=== PATIENT | male | born 1995 | race Caucasian/White ===

== ENCOUNTER 2018-04-04 12:46 | Emergency (ER) | payer OTHER ==
--- NOTE | 2018-04-04 13:30 | RAD ---
INDICATION: Aspiration of seed. COMPARISON: Comparison is made with a prior study from March 19, 2012. TECHNIQUE: Dual-energy PA and lateral views of the chest were obtained. FINDINGS: The heart is within normal limits in size. Mediastinal and hilar contours appear within normal limits. The lungs are clear. No pleural effusion is present. IMPRESSION: NO EVIDENCE FOR ACTIVE CARDIOPULMONARY DISEASE.
--- NOTE | 2018-04-04 13:55 | ED ---
HPI Cardiac - HPI Summary HPI Summary: Pt presents w/ 1 week h/o Rt anterior mid chest pain, parasternal, since accidentally aspirating a hemp plant seed at work. This happened on Friday and he had acute pain w/ the inspiration - has had a cough and discomfort here since , mostly w/ deep breath. Has a sensation that he's SOB but denies wheezing, difficulty swallowing, trouble sleeping/eating/drinking. Reports the seed is part of a plant that is processed for CBD oil only - no THC - denies effects of CBD such as dizziness, lightheadedness, fatigue, etc. No h/o pulm issues. Smoke cigarettes and marijuana recreationally. Admits to ETOH use occasionally but has not drank this week. - History of Current Complaint Chief Complaint: EDShortnessOfBreath Stated Complaint: CHEST DISCOMFORT Time Seen by Provider: 04/04/18 13:12 Hx Obtained From: Patient Pain Intensity: 5 - Allergy/Home Medications Allergies/Adverse Reactions: Allergies Allergy/AdvReac Type Severity Reaction Status Date / Time No Known Allergies Allergy Verified 04/04/18 12:52 PMH/Surg Hx/FS Hx/Imm Hx Previously Healthy: Yes Endocrine/Hematology History: Denies: Hx Anticoagulant Therapy, Hx Diabetes, Hx Thyroid Disease Cardiovascular History: Denies: Hx Hypertension, Hx Pacemaker/ICD Respiratory History: Denies: Hx Asthma, Hx Chronic Obstructive Pulmonary Disease (COPD), Hx Seasonal Allergies History: Denies: Hx Renal Disease Sensory History: Reports: Hx Contacts or Glasses - GLASSES Denies: Hx Hearing Aid Opthamlomology History: Reports: Hx Contacts or Glasses - GLASSES Neurological History: Denies: Hx Dementia, Hx Seizures Psychiatric History: Reports: Hx Eating Disorder - history of bulimia states he hasn't vomited in over a year, Hx Substance Abuse - MARIJUANA USE - Surgical History Surgery Procedure, Year, and Place: WISDOM TEETH Hx Anesthesia Reactions: No - Immunization History Date of Tetanus Vaccine: utd Infectious Disease History: No Infectious Disease History: Denies: Hx Hepatitis, Hx Human Immunodeficiency Virus (HIV), Traveled Outside the [place] in Last 30 Days - Social History 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 Alcohol Use: Occasionally Substance Use Type: Reports: Marijuana Hx Tobacco Use: Yes Smoking Status (MU): Current Every Day Smoker Amount Used/How Often: 1/2 PPD Length of Time of Smoking/Using Tobacco: 1.5YRS Review of Systems Constitutional: Negative Negative: Fever, Chills, Fatigue Positive: Chest Pain Positive: Cough Gastrointestinal: Negative Positive: no symptoms reported Musculoskeletal: Negative Skin: Negative Neurological: Negative Psychological: Normal All Other Systems Reviewed And Are Negative: Yes Physical Exam Triage Information Reviewed: Yes Vital Signs On Initial Exam: Initial Vitals Temp Pulse Resp BP Pulse Ox 98.7 F 87 18 149/91 100 04/04/18 12:48 04/04/18 12:48 04/04/18 12:48 04/04/18 12:48 04/04/18 12:48 Vital Signs Reviewed: Yes Appearance: Positive: Well-Appearing, No Pain Distress, Well-Nourished Skin: Positive: Warm, Skin Color Reflects Adequate Perfusion, Dry Head/Face: Positive: Normal Head/Face Inspection Eyes: Positive: Normal, EOMI ENT: Positive: Normal ENT inspection, Hearing grossly normal, Pharynx normal - mucosa moist Neck: Positive: Supple, Nontender Respiratory/Lung Sounds: Positive: Clear to Auscultation, Breath Sounds Present , Other - cough is rare and brief. Negative: Decreased Breath Sounds, Rales, Rhonchi, Subcutaneous Emphysema, Stridor, Tracheal Deviation, Wheezes, Unable to speak in full sentences, Fatigue Cardiovascular: Positive: Normal, RRR, S1, S2. Negative: Leg Edema Left, Leg Edema Right Abdomen Description: Positive: Soft Bowel Sounds: Positive: Present Musculoskeletal: Positive: Normal, Strength/ROM Intact Neurological: Positive: Normal, Sensory/Motor Intact, Alert, Oriented to Person Place, Time, CN Intact II-III Psychiatric: Positive: Normal - concerned but calm Diagnostics - Vital Signs Vital Signs Temp Pulse Resp BP Pulse Ox 04/04/18 13:22 80 95 04/04/18 12:48 98.7 F 87 18 149/91 100 - Laboratory Lab Statement: Any lab studies that have been ordered have been reviewed, and results considered in the medical decision making process. Disposition - Course Course Of Treatment: CXR: no FB observed - no 2ndry acute pulm findings such as PNA. W/ acute onset of sx timed w/ aspiration and vitals WNL, no further testing today. However if sx persist or worsen, pt may be a candidate for labs/ CT scan. Discussed w/ Dr. Walsh who agrees there is not urgent concern based on imaging and presentation. Will have pt reduce/elimate smoking altogether to allow his lungs to heal. If danger s/sx present, will return to ED. - Diagnoses Provider Diagnoses: Cough Discharge - Sign-Out/Discharge Documenting (check all that apply): Patient Departure - Discharge Plan Condition: Stable Disposition: HOME Patient Education Materials: Acute Cough (ED) Referrals: Lang Pavon MD [Primary Care Provider] - Additional Instructions: Based on your recall of events, you may have aspirated a seed. This was not seen on XR today and your vital signs are normal. To reduce pain and cough, you may reduce/eliminate smoking altogether until your lungs heal. You may also try humidification, rest, fluids, cough drops, mucinex with plenty of fluid. A seed is organic material and the body will break it down over time. *If you develop shortness of breath, difficulty breathing, fever, chills, nausea , back pain or bloody cough, return to the ED. Otherwise, you may follow-up with your PCP. - Billing Disposition and Condition Condition: STABLE Disposition: Home
[2018-04-04 14:28] VITALS: BP 0/0
== END 2018-04-04 14:27 | disposition home or self-care (01) ==
LOC: ED 12:46
DX: R05 Cough (principal); F17.210 Nicotine dependence, cigarettes, uncomplicated
CPT/HCPCS: 71046; 99282

== ENCOUNTER 2018-04-18 16:37 | Emergency (ER) | payer OTHER ==
--- NOTE | 2018-04-18 17:52 | ED ---
Psychiatric Complaint - HPI Summary HPI Summary: This patient is a 22 year old M presenting to [facility] with a chief complaint of stress since getting into legal trouble. Pt states he is going through family and legal crises and needs someone to talk to. He denies SI, HI, and rx. He endorses decreased appetite with emesis (food wont stay down), and insomnia. He states that his legal counselling could not get him psychiatric help until 2 weeks from now. - History Of Current Complaint Chief Complaint: EDMentalHealth Time Seen by Provider: 04/18/18 17:32 Hx Obtained From: Patient Onset/Duration: Gradual Onset, Still Present Timing: Constant Severity Initially: Mild Severity Currently: Mild Character: Depressed Aggravating Factor(s): Recent Stress - family crisis, legal trouble Alleviating Factor(s): Nothing Associated Signs And Symptoms: Positive: Sleep Disturbance, Appetite Change Has Suicidal: Denies: Thoughts Has Homicidal: Denies: Thoughts Recent Stressor(s): "family crisis" and legal trouble - Allergies/Home Medications Allergies/Adverse Reactions: Allergies Allergy/AdvReac Type Severity Reaction Status Date / Time No Known Allergies Allergy Verified 04/04/18 12:52 PMH/Surg Hx/FS Hx/Imm Hx Endocrine/Hematology History: Denies: Hx Anticoagulant Therapy, Hx Diabetes, Hx Thyroid Disease Cardiovascular History: Denies: Hx Hypertension, Hx Pacemaker/ICD Respiratory History: Denies: Hx Asthma, Hx Chronic Obstructive Pulmonary Disease (COPD), Hx Seasonal Allergies History: Denies: Hx Renal Disease Sensory History: Reports: Hx Contacts or Glasses - GLASSES Denies: Hx Hearing Aid Opthamlomology History: Reports: Hx Contacts or Glasses - GLASSES Neurological History: Denies: Hx Dementia, Hx Seizures Psychiatric History: Reports: Hx Eating Disorder - history of bulimia states he hasn't vomited in over a year, Hx Substance Abuse - MARIJUANA USE - Surgical History Surgery Procedure, Year, and Place: WISDOM TEETH Hx Anesthesia Reactions: No - Immunization History Date of Tetanus Vaccine: utd Infectious Disease History: No Infectious Disease History: Denies: Hx Hepatitis, Hx Human Immunodeficiency Virus (HIV), Traveled Outside the [place] in Last 30 Days - Family History Known Family History: Positive: Diabetes Negative: Cardiac Disease, Hypertension, Renal Disease, Other - psychiatric problems - Social History Occupation: Employed Full-time - 70 hours a week Lives: With Family Alcohol Use: Occasionally Hx Substance Use: Yes Substance Use Type: Reports: Marijuana Hx Tobacco Use: Yes Smoking Status (MU): Current Every Day Smoker Amount Used/How Often: 1/2 PPD Length of Time of Smoking/Using Tobacco: 1.5YRS Review of Systems Negative: Fever Positive: no symptoms reported Positive: Anxious - high stress. Negative: Other - SI, HI All Other Systems Reviewed And Are Negative: Yes Physical Exam - Summary Physical Exam Summary: Appearance: The patient is well-nourished in no acute distress and in no acute pain. Skin: The skin is warm and dry and skin color reflects adequate perfusion. HEENT: The head is normocephalic and atraumatic. The pupils are equal and reactive. The conjunctivae are clear and without drainage. Nares are patent and without drainage. Mouth reveals moist mucous membranes and the throat is without erythema and exudate. The external ears are intact. The ear canals are patent and without drainage. The tympanic membranes are intact. Neck: The neck is supple with full range of motion and non-tender. There are no carotid bruits. There is no neck vein distension. Respiratory: Chest is non-tender. Lungs are clear to auscultation and breath sounds are symmetrical and equal. Cardiovascular: Heart is regular rate and rhythm. There is no murmur or rub auscultated. There is no peripheral edema and pulses are symmetrical and equal. Abdomen: The abdomen is soft and non-tender. There are normal bowel sounds heard in all four quadrants and there is no organomegaly palpated. Musculoskeletal: There is no back tenderness noted. Extremities are non-tender with full range of motion. There is good capillary refill. There is no peripheral edema or calf tenderness elicited. Neurological: Patient is alert and oriented to person, place and time. The patient has symmetrical motor strength in all four extremities. Cranial nerves are grossly intact. Deep tendon reflexes are symmetrical and equal in all four extremities. Psychiatric: The patient has an appropriate affect and does not exhibit any anxiety or depression. Triage Information Reviewed: Yes Vital Signs On Initial Exam: Initial Vitals Temp Pulse Resp BP Pulse Ox 97.7 F 100 16 156/91 98 04/18/18 16:38 04/18/18 16:38 04/18/18 16:38 04/18/18 16:38 04/18/18 16:38 Vital Signs Reviewed: Yes Diagnostics - Vital Signs Vital Signs Temp Pulse Resp BP Pulse Ox 04/18/18 16:38 97.7 F 100 16 156/91 98 - Laboratory Result Diagrams: 04/18/18 18:16 04/18/18 18:16 Lab Statement: Any lab studies that have been ordered have been reviewed, and results considered in the medical decision making process. Re-Evaluation - Re-Evaluation 1 Re-Evaluation Time: 01:45 Change: Improved Comment: Dr. Zambrano has dx'ed the pt with depression and states that he is stable for discharge. The pt has an appointment with [facility] on the and a drug and alcohol evaluation on this coming 04/22/2018. Course/Dx - Course Course Of Treatment: Mr. Reeves is calm and cooperative during his stay here. He was medically cleared and is awaiting mental health evaluation here in the department. - Differential Dx/Clinical Impression Provider Diagnosis: Depression Discharge - Sign-Out/Discharge Documenting (check all that apply): Patient Departure, Sign-Out Patient Signing out patient TO: David Wrae - Discharge Plan Condition: Stable Disposition: HOME Referrals: [facility] [Other] - 05/04/18 (Please keep your current scheduled appointment) No Primary Care Phys,NOPCP [Primary Care Provider] - - Billing Disposition and Condition Condition: STABLE Disposition: Home - Attestation Statements Document Initiated by Gregg: Yes Documenting Scribe: Sean Miller Provider For Whom Gregg is Documenting (Include Credential): Dr. Yobany Peters MD Scribe Attestation: Sean Craig scribed for Dr. Yobany Peters MD on 04/19/18 at 1203. Scribe Documentation Reviewed: Yes Provider Attestation: The documentation as recorded by the Sean laura accurately reflects the service I personally performed and the decisions made by me, Dr. Yobany Peters MD
[2018-04-18 18:28] LABS: ABS Basophils 0 10^3/ul (0-0.2); ABS Eosinophils 0 10^3/ul (0-0.6); ABS Lymphocytes 2.2 10^3/ul (1.0-4.8); ABS Nucleated RBC 0 10^3/ul; Eosinophil % 0.4 % (0-6); Hematocrit 42 % (42-52); Hemoglobin 14.9 g/dl (14.0-18.0); Lymphocyte % 23.6 % (25-47); Mean Corpuscular HGB Conc 35 g/dl (31-36); Mean Corpuscular Hemoglobin 32 pg (27-31); Mean Corpuscular Volume 90 fL (80-94); Nucleated Red Blood Cells % 0; Platelet Count 271 10^3/ul (150-450); Red Cell Distribution Width 12 % (10.5-15); White Blood Count 9.2 10^3/ul (3.5-10.8)
[2018-04-18 18:43] LABS: EGFR Non-African American 120.9 (>60)
[2018-04-18] MEDS ORDERED: Nicotine Inhaler* 10 MG AMP INH ONE ×2 (20:37→23:52)
[2018-04-18] MEDS ORDERED: Mouth Piece, Nicotine* 1 EACH CARTRIDGE ONE (20:46)
[2018-04-19 02:11] VITALS: BP 109/62
== END 2018-04-19 02:09 | disposition home or self-care (01) ==
LOC: ED 16:37
DX: F32.9 Major depressive disorder, single episode, unspecified (principal); F17.210 Nicotine dependence, cigarettes, uncomplicated
CPT/HCPCS: 36415; 80053; 80320; 80329; 84443; 85025; 99284; A9270-GY; G0480